=== PATIENT | male | born 1980 | race African-American/Black ===

== ENCOUNTER 2016-10-06 18:15 | Emergency (ER) | payer SELFPAY ==
[~2016-10-06] VITALS: Ht 182.9 cm; Wt 99.8 kg
[2016-10-06 18:26] VITALS: BP 153/92
[2016-10-06] MEDS ORDERED: PRED20TA PO (18:49)
[2016-10-06] MEDS ORDERED: AMOX1TAB61 PO (18:49)
--- NOTE | 2016-10-06 18:49 | PHYS DOC ---
Past Medical History Past Medical History: No Pertinent History Past Surgical History: No Surgical History Alcohol Use: None Drug Use: None Adult General Chief Complaint Chief Complaint: Congestion HPI HPI Patient is a 35 year old male presents to the emergency Department stating he' s had a 2 week history of nasal congestion. He denies any fever, chills or nausea vomiting. He states that he is unable to breathe out of his nose. He states that he has been having occasional nosebleeds. He denies any cough or congestion. Patient states that he tried Sudafed at home with no relief. Review of Systems Review of Systems Constitutional: Denies fever or chills [] Eyes: Denies change in visual acuity, redness, or eye pain [] HENT: nasal congestion denies sore throat [] Respiratory: Denies cough or shortness of breath [] Cardiovascular: No additional information not addressed in HPI [] GI: Denies abdominal pain, nausea, vomiting, bloody stools or diarrhea [] : Denies dysuria or hematuria [] Musculoskeletal: Denies back pain or joint pain [] Integument: Denies rash or skin lesions [] Neurologic: Denies headache, focal weakness or sensory changes [] Allergies Allergies Allergies Coded Allergies Type Severity Reaction Last Updated Verified aspirin Allergy Intermediate 10/06/16 Yes ibuprofen Allergy Intermediate 10/06/16 Yes Physical Exam Physical Exam Constitutional: Well developed, well nourished, no acute distress, non-toxic appearance. [] HENT: Normocephalic, atraumatic, bilateral external ears normal, oropharynx moist, no oral exudates, nose normal. Bilateral tympanic membranes appear to be normal. Bilateral naris appears to be very swollen with very little air movement noted to bilateral naris. Throat with no erythematous or drainage noted. Shunt with minimal maxillary sinus tenderness noted Eyes: PERRLA, EOMI, conjunctiva normal, no discharge. [] Neck: Normal range of motion, no tenderness, supple, no stridor. [] Cardiovascular:Heart rate regular rhythm, no murmur [] Lungs & Thorax: Bilateral breath sounds clear to auscultation [] Skin: Warm, dry, no erythema, no rash. [] Back: No tenderness Extremities: No tenderness, no cyanosis, no clubbing, ROM intact, no edema. [] Neurologic: Alert and oriented X 3, normal motor function, normal sensory function, no focal deficits noted. [] Psychologic: Affect normal, judgement normal, mood normal. [] Current Patient Data Vital Signs Vital Signs Date Time Temp Pulse Resp B/P Pulse Ox O2 Delivery O2 Flow Rate FiO2 10/06/16 18:26 97.5 99 20 96 Room Air 97.5 EKG EKG [] Radiology/Procedures Radiology/Procedures [] Course & Med Decision Making Course & Med Decision Making Pertinent Labs and Imaging studies reviewed. (See chart for details) Patient will be discharged home with a history prescription for Augmentin for sinus infection. Patient will also be placed on steroids to help with inflammation and the naris. Also recommended Sudafed and Mucinex to help with the pressure and help relieve the drainage. Patient will be discharged home with recommendations to follow-up with an ENT within the next week. Signs and symptoms to return back to the emergency department as been provided. Patient agrees with discharge instructions treatment regimens and follow-up recommendations. [] Dragon Disclaimer Dragon Disclaimer This electronic medical record was generated, in whole or in part, using a voice recognition dictation system. Departure Departure Impression: Primary Impression: Sinusitis, acute Disposition: 01 HOME, SELF-CARE Condition: STABLE Patient Instructions: Sinusitis, [id number] Additional Instructions: Activity as tolerated. Medication as prescribed. Drink plenty of fluids. Use Sudafed instructed by nuclear technologist [id number]. Also use Mucinex DM as directed by nuclear technologist [id number]. Follow-up with Dr. Melgoza her number is [phone] letter know that you are a patient that lives in the [facility] when calling for an appointment. Return back to emergency prior signs symptoms of become worse. Scripts Amoxicillin/Potassium Clav (Augmentin 875-125 Tablet)1 Each Tablet1 Tab PO BID # 20 TAB Prov:DEVIN JUSTIN APRN 10/06/16 Prednisone 20 Mg [id number] Mg PO DAILY #14 TAB Prov:DEVIN JUSTIN APRN 10/06/16 DEVIN JUSTIN APRN Oct 06, 2016 18:49
== END 2016-10-06 18:55 | disposition home or self-care (01) ==
LOC: ER 18:15
DX: J01.90 Acute sinusitis, unspecified (principal); Z88.6 Allergy status to analgesic agent; Z88.8 Allergy status to other drugs, medicaments and biological substances
CPT/HCPCS: 99283